=== PATIENT | male | born 1975 | race Caucasian/White ===

== ENCOUNTER 2019-02-13 14:38 | Emergency (ER) | payer OTHER ==
--- NOTE | 2019-02-13 15:44 | ER Document Report ---
ED Medical Screen (RME) - General Chief Complaint: Skin Problem Stated Complaint: PENILE IRRITATION, REDNESS, PAIN Time Seen by Provider: 02/13/19 15:36 Primary Care Provider: LOLA KEE MD [Primary Care Provider] - Follow up as needed Notes: Patient is a 44-year-old male that presents to the emergency department for chief complaint of penile irritation. Patient states that last week, he noticed some irritation on his penis, he states that he put on the same shorts, and thinks that may have led to more irritation, and eventually he had discharge coming from around the head of his pain is coming went to urgent care, they started him on nystatin and triamcinolone cream as well as clindamycin, he states it is only gotten worse since then and not improved, states he is having a hard time causing his pain is to come out, is becoming invaginated. ROS: Other than noted above, the 12 point review of systems was reviewed with the patient and were negative, all pertinent findings are included in the HPI. PHYSICAL EXAMINATION: Vital signs reviewed. GENERAL: Well-appearing, well-nourished and in no acute distress. HEAD: Atraumatic, normocephalic. EYES: Pupils equal round extraocular movements intact, conjunctiva are normal. ENT: Nares patent NECK: Normal range of motion CV: Heart regular rate and rhythm LUNGS: No respiratory distress Musculoskeletal: Normal range of motion Male genital: Concerning for significant balanoposthitis, discharge, tenderness and erythema noted, skin is cracked at the glans NEUROLOGICAL: Normal speech PSYCH: Normal mood, normal affect. MDM: Patient seen and examined for rapid initial assessment. Vital signs reviewed. A comprehensive ED assessment and evaluation of the patient, analysis of test results and completion of the medical decision making process will be conducted by additional ED providers. *Note is created using voice recognition software and may contain spelling, syntax or grammatical errors. TRAVEL OUTSIDE OF THE [place] IN LAST 30 DAYS: No - Related Data Allergies/Adverse Reactions: No Known Allergies Allergy (Unverified 02/13/19 14:39) Physical Exam - Vital signs Vitals: Temp Pulse Resp BP Pulse Ox 98.7 F 102 H 16 189/109 H 97 02/13/19 14:50 02/13/19 14:50 02/13/19 14:50 02/13/19 14:50 02/13/19 14:50 Course - Vital Signs Vital signs: Temp Pulse Resp BP Pulse Ox 98.7 F 102 H 16 189/109 H 97 02/13/19 14:50 02/13/19 14:50 02/13/19 14:50 02/13/19 14:50 02/13/19 14:50 Doctor's Discharge - Discharge Referrals: LOLA KEE MD [Primary Care Provider] - Follow up as needed
[2019-02-13] MEDS ORDERED: KETOROLAC TROMETHAMINE INJ/PF 30 MG/1 ML SDV IV ONE (15:45)
[2019-02-13 16:35] LABS: ABSOLUTE BASOPHILS # (AUTO) 0.1 10^3/uL (0.0-0.2); ABSOLUTE EOSINOPHILS # (AUTO) 0.2 10^3/uL (0.0-0.6); ABSOLUTE LYMPHOCYTES (AUTO) 2.1 10^3/uL (0.5-4.7); ABSOLUTE MONOCYTES (AUTO) 0.8 10^3/uL (0.1-1.4); ABSOLUTE NEUT (AUTO) 4.9 10^3/uL (1.7-8.2); BASOPHILS % (AUTO) 0.9 % (0-2); EOSINOPHILS % (AUTO) 2.1 % (0-6); HEMATOCRIT 45.6 % (37.9-51.0); HEMOGLOBIN 15.8 g/dL (13.5-17.0); LYMPHOCYTES % (AUTO) 25.7 % (13-45); MEAN CORPUSCULAR HEMOGLOBIN 31.6 pg (27.0-33.4); MEAN CORPUSCULAR HGB CONC 34.6 g/dL (32.0-36.0); MEAN CORPUSCULAR VOLUME 91 fl (80-97); MONOCYTES % (AUTO) 10.1 % (3-13); PLATELET COUNT 167 10^3/uL (150-450); RED CELL DISTRIBUTION WIDTH 14.6 % (11.5-14.0); SEGMENTED NEUTROPHILS % (AUTO) 61.2 % (42-78); TOTAL CELLS COUNTED % (AUTO) 100 %; WHITE BLOOD COUNT 8.1 10^3/uL (4.0-10.5)
[2019-02-13 16:44] LABS: ALANINE AMINOTRANSFERASE 27 U/L (21-72); ALBUMIN 3.9 g/dL (3.5-5.0); ALKALINE PHOSPHATASE 84 U/L (38-126); ANION GAP 9 (5-19); ASPARTATE AMINO TRANSFERASE 34 U/L (17-59); BILIRUBIN,DIRECT 0.3 mg/dL (0.0-0.4); BILIRUBIN,TOTAL 0.5 mg/dL (0.2-1.3); BLOOD UREA NITROGEN 13 mg/dL (7-20); CALCIUM 9.8 mg/dL (8.4-10.2); CARBON DIOXIDE 24 mmol/L (22-30); CHLORIDE 103 mmol/L (98-107); GLUCOSE 253 mg/dL (75-110); POTASSIUM 3.8 mmol/L (3.6-5.0); SODIUM 136.2 mmol/L (137-145)
--- NOTE | 2019-02-13 19:09 | RADIOLOGY REPORT (SQ) ---
EXAM DESCRIPTION: CT ABD/PELVIS WITH IV ONLY COMPLETED DATE/TIME: 02/13/2019 7:01 pm REASON FOR STUDY: perineal cellulitis COMPARISON: None. TECHNIQUE: CT scan of the abdomen and pelvis performed using helical scanning technique with dynamic intravenous contrast injection. No oral contrast. Images reviewed with lung, soft tissue, and bone windows. Reconstructed coronal and sagittal MPR images reviewed. Delayed images for evaluation of the urinary system also acquired. All images stored on PACS. All CT scanners at this facility use dose modulation, iterative reconstruction, and/or weight based d osing when appropriate to reduce radiation dose to as low as reasonably achievable (ALARA). [facility]: Dose Right [facility]: CareDose [facility]: Dose Right [facility]: Teradose 4D [facility]: BitPoster CONTRAST TYPE AND DOSE: contrast/concentration: Isovue 350.00 mg/ml; Total Contrast Delivered: 100.0 ml; Total Saline Delivered: 72.0 ml RENAL FUNCTION: None required. The patient is less than 50 years old. RADIATION DOSE: CT Rad equipment meets quality standard of care and radiation dose reduction techniq ues were employed. CTDIvol: 21.1 mGy. DLP: 3199 mGy-cm.. LIMITATIONS: None. FINDINGS: LOWER CHEST: No significant findings. No nodules or infiltrates. LIVER: Fatty liver. No focal masses. SPLEEN: Normal size. No focal lesions. PANCREAS: No masses. No significant calcifications. No adjacent inflammation or peripancreatic fluid collections. Pancreatic duct not dilated. GALLBLADDER: No identified stones by CT criteria. No inflammatory changes to suggest cholecystitis. ADRENAL GLANDS: No significant masses or asymmetry. RIGHT KIDNEY AND URETER: Cyst. No significant calcifications. No hydronephrosis or hydroureter. LEFT KIDNEY AND URETER: No solid masses. No significant calcifications. No hydronephrosis or hydr oureter. AORTA AND VESSELS: No aneurysm. No dissection. Renal arteries, SMA, celiac without stenosis. RETROPERITONEUM: No retroperitoneal adenopathy, hemorrhage or masses. BOWEL AND PERITONEAL CAVITY: No masses or inflammatory changes. No free fluid or peritoneal masses. Diverticulosis. APPENDIX: Normal. PELVIS: No mass. No free fluid. Normal bladder. ABDOMINAL WALL: No masses. No hernias. There is edema in the fat of the lower abdominal wall. No ga s. No scrotal gas. BONES: No significant or acute findings. OTHER: No other significant finding. IMPRESSION: Edema of lower abdominal wall without gas. No scrotal gas. No other significant finding. TECHNICAL DOCUMENTATION: JOB ID: [id number] Quality ID # [id number]: Final reports with documentation of one or more dose reduction techniques (e.g., Au tomated exposure control, adjustment of the mA and/or kV according to patient size, use of iterative reconstruction technique) 2010 [employer]- All Rights Reserved Reading location - IP/workstation name: [email or web address]
[2019-02-13 20:39] LABS: APPEARANCE,URINE CLEAR; BILIRUBIN,URINE NEGATIVE (NEGATIVE); COLOR,URINE YELLOW; GLUCOSE, URINE >=500 mg/dL (NEGATIVE); KETONES,URINE NEGATIVE (NEGATIVE); LEUKOCYTE ESTERASE,URINE TRACE (NEGATIVE); NITRITE,URINE NEGATIVE (NEGATIVE); PROTEIN,URINE NEGATIVE (NEGATIVE); UROBILINOGEN,URINE NEGATIVE mg/dL (<2.0)
[2019-02-13 20:40] LABS: URINE SPECIFIC GRAVITY > 1.060
--- NOTE | 2019-02-13 20:45 | ER Document Report ---
HPI - HPI Time Seen by Provider: 02/13/19 15:36 Pain Level: 4 Notes: Patient is a 44-year-old male who presents emergency department complaining of fungal infection in his penis/genital region over the last week and a half with associated erythema and swelling. Patient states that he was evaluated originally by [facility] [place] who placed him on nystatin/triamcinolone combo as well as clindamycin. Patient states that overall his symptoms have been improving, and he is now able to get the head of his penis to come out from the swollen foreskin. Patient states that he would like another reevaluation and possible spray if possible for treatment. He is still urinating normally and having normal bowel movements. No other no significant past medical history. He is eating and drinking without difficulty. Denies drug allergies. Denies any headache, fever, neck pain, URI, sore throat, chest pain, palpitations, syncope, cough, shortness of breath, wheeze, dyspnea, abdominal pain, nausea/vomiting/diarrhea, urinary retention, dysuria, hematuria, loss of control of bowel or bladder, numbness/tingling, saddle anesthesia, muscle paralysis/weakness. - ROS Systems Reviewed and Negative: Yes All other systems reviewed and negative - DERM Skin Color: Normal Past Medical History - Social History Smoking Status: Current Every Day Smoker Frequency of alcohol use: None Drug Abuse: None Family History: Reviewed & Not Pertinent Patient has suicidal ideation: No Patient has homicidal ideation: No - Past Medical History Cardiac Medical History: Reports: Hx Hypertension Renal/ Medical History: Denies: Hx Peritoneal Dialysis Vertical Provider Document - CONSTITUTIONAL Agree With Documented VS: Yes Notes: PHYSICAL EXAMINATION: GENERAL: Well-appearing, well-nourished and in no acute distress. LUNGS: Breath sounds clear to auscultation bilaterally and equal. No wheezes rales or rhonchi. HEART: Regular rate and rhythm without murmurs, rubs, gallops. ABDOMEN: Soft, nontender, nondistended abdomen. No guarding, no rebound. No masses appreciated. Normal bowel sounds present. No CVA tenderness bilaterally. Morbidly obese. : there is noted erythema, and balanitis with HPV present. No necrosis. Non-tender to palp of the scrotum/testicles. No paraphimosis/phimosis. + scant white material noted. No induration/fluctuance. Musculoskeletal: FROM to passive/active. Strength 5+/5. Extremities: No cyanosis, clubbing, or edema b/l. Peripheral pulses 2+. Capillary refill less than 3 seconds. NEUROLOGICAL: Normal speech, normal gait. Normal sensory, motor exams PSYCH: Normal mood, normal affect. SKIN: see above. - INFECTION CONTROL TRAVEL OUTSIDE OF THE [place] IN LAST 30 DAYS: No Course - Re-evaluation Re-evalutation: 02/13/19 21:[address] Guerrero who is in agreement with dispo/plan: Patient is an afebrile, well-hydrated, 44-year-old male who presents the emergency department with balanitis suspect secondary to fungal with an underlying probable diagnosis of diabetes. Vitals are acceptable without significant tachycardia, tachypnea, or hypoxia. PE is otherwise unremarkable. Patient is nontoxic-appearing and is tolerating p.o. without difficulty. He is still able to urinate. There is no evidence of paraphimosis or phimosis. CBC showed no leukocytosis. CMP shows elevated glucose and urinalysis is otherwise unremarkable aside from glucose. No suspicion for any gangrene, SJS, sepsis, or other systemic emergent condition at this time. There is no evidence of abscess or fluctuance requiring incision and drainage. 1 dose of Diflucan given p.o. today. We will have him stop the nystatin/triamcinolone cream and place him on clotrimazole twice daily. We will also start him on metformin 500 mg daily for 5 days then increase to twice daily if tolerated. Recheck with PCM in 3-5 days. Schedule an appointment with a urologist. Return to the ED with any other worsening/concerning symptoms as reviewed. Patient is in agreement. - Vital Signs Vital signs: Temp Pulse Resp BP Pulse Ox 98.7 F 102 H 16 189/109 H 97 02/13/19 14:50 02/13/19 14:50 02/13/19 14:50 02/13/19 14:50 02/13/19 14:50 - Laboratory Result Diagrams: 02/13/19 16:04 02/13/19 16:04 Laboratory results interpreted by me: 02/13/19 02/13/19 02/13/19 16:04 16:04 20:15 RDW 14.6 H Sodium 136.2 L Glucose 253 H Urine Glucose (UA) >=500 H Ur Leukocyte Esterase TRACE H Discharge - Discharge Clinical Impression: Balanitis, Fungal infection, Elevated glucose Condition: Stable Disposition: HOME, SELF-CARE Instructions: [place] ([facility]) Additional Instructions: Keep the skin clean and dry Wash with mild soap and water Tylenol/ibuprofen if needed Creams as directed Begin metformin 1 tablet daily for 5 days then increase to twice daily if tolerated. You have a short supply so will need to see your family doctor or establish with somebody for further management. Monitor for any worsening symptoms Recheck with your PCM in 3-5 days Schedule an appointment with urology for further evaluation and management Return to the ED with any worsening symptoms and/or development of fever, headache, chest pain, palpitations, syncope, shortness of breath, trouble breathing, abdominal pain, n/v/d, abscess, purulent discharge, red streaks, worsening swelling, or other worsening symptoms that are concerning to you. Prescriptions: Clotrimazole [Athletic Foot Cream] 1 applic TP BID #30 gm Metformin HCl [Glucophage 500 mg Tablet] 500 mg PO BID #30 tablet Forms: Elevated Blood Pressure Referrals: [facility] [Provider Group] - Follow up as needed [facility] [Provider Group] - Follow up as needed [facility] [Provider Group] - Follow up in 3-5 days
[2019-02-13] MEDS ORDERED: FLUCONAZOLE 100 MG TABLET PO ONE (21:06)
[2019-02-13 21:38] VITALS: BP 172/95
--- NOTE | 2019-02-13 22:10 | ER Document Report ---
Doctor's Note Notes: I personally and independently obtained patient history and examined the patient in conjunction with the APC and agree with the assessment, treatment plan and disposition of the patient as recorded by the APC, and have reviewed the APC's note. HISTORY OF PRESENT ILLNESS: Patient is a 44-year-old male that presents to the emergency department for chief complaint of penile irritation. Patient states that last week, he noticed some irritation on his penis, he states that he put on the same shorts, and thinks that may have led to more irritation, and eventually he had discharge coming from around the head of his pain is coming went to urgent care, they started him on nystatin and triamcinolone cream as well as clindamycin, he states it is only gotten worse since then and not improved, states he is having a hard time causing his pain is to come out, is becoming invaginated. ROS: Other than noted above, the 12 point review of systems was reviewed with the patient and were negative, all pertinent findings are included in the HPI. PHYSICAL EXAMINATION: Vital signs reviewed. GENERAL: Well-appearing, well-nourished and in no acute distress. HEAD: Atraumatic, normocephalic. EYES: Pupils equal round extraocular movements intact, conjunctiva are normal. ENT: Nares patent NECK: Normal range of motion CV: Heart regular rate and rhythm LUNGS: No respiratory distress Musculoskeletal: Normal range of motion Male genital: Concerning for significant balanoposthitis, discharge, tenderness and erythema noted, skin is cracked at the glans NEUROLOGICAL: Normal speech PSYCH: Normal mood, normal affect. MEDICAL DECISION MAKING: Patient seen and examined, vital signs reviewed, patient is exam was most consistent with balanoposthitis, however there was some erythema just superior to the base of the penis, therefore CT imaging was obtained, as well as blood work, to further evaluate for possible deeper soft tissue infection, blood work was unremarkable, as was urinalysis, and CT imaging only demonstrated some soft tissue inflammation without gas, patient was advised to continue his antibiotics, switched his cream to clotrimazole, and have him follow-up with urology. Please review detail APC documentation. *Note is created using voice recognition software and may contain spelling, syntax or grammatical errors. Laboratory 02/13/19 02/13/19 02/13/19 16:04 16:04 20:15 WBC 8.1 RBC 5.00 Hgb 15.8 Hct 45.6 MCV 91 MCH 31.6 MCHC 34.6 RDW 14.6 H Plt Count 167 Seg Neutrophils % 61.2 Lymphocytes % 25.7 Monocytes % 10.1 Eosinophils % 2.1 Basophils % 0.9 Absolute Neutrophils 4.9 Absolute Lymphocytes 2.1 Absolute Monocytes 0.8 Absolute Eosinophils 0.2 Absolute Basophils 0.1 Sodium 136.2 L Potassium 3.8 Chloride 103 Carbon Dioxide 24 Anion Gap 9 BUN 13 Creatinine 0.77 Est GFR ( Amer) > 60 Est GFR (Non-Af Amer) > 60 Glucose 253 H Calcium 9.8 Total Bilirubin 0.5 Direct Bilirubin 0.3 Neonat Total Bilirubin Not Reportable Neonat Direct Bilirubin Not Reportable Neonat Indirect Bili Not Reportable AST 34 ALT 27 Alkaline Phosphatase 84 Total Protein 8.0 Albumin 3.9 Urine Color YELLOW Urine Appearance CLEAR Urine pH 5.0 Ur Specific [place] > 1.060 Urine Protein NEGATIVE Urine Glucose (UA) >=500 H Urine Ketones NEGATIVE Urine Blood NEGATIVE Urine Nitrite NEGATIVE Urine Bilirubin NEGATIVE Urine Urobilinogen NEGATIVE Ur Leukocyte Esterase TRACE H Urine WBC (Auto) 0 Urine RBC (Auto) 3 Urine Bacteria (Auto) TRACE Squamous Epi Cells Auto 3 Urine Mucus (Auto) OCC Urine Ascorbic Acid NEGATIVE Abdomen/Pelvis CT 02/13/19 17:07 IMPRESSION: Edema of lower abdominal wall without gas. No scrotal gas. No other significant finding.
== END 2019-02-13 21:35 | disposition home or self-care (01) ==
LOC: ER 14:38
DX: N48.1 Balanitis (principal); B49 Unspecified mycosis; R73.9 Hyperglycemia, unspecified; N48.89 Other specified disorders of penis; F17.200 Nicotine dependence, unspecified, uncomplicated; I10 Essential (primary) hypertension
CPT/HCPCS: 99284; 96374; 36415; 85025; 80053; 81001; 74177; J1885